=== PATIENT | female | born 1990 | race Caucasian/White ===

== ENCOUNTER 2016-10-09 09:35 | Emergency (ER) | payer OTHER ==
[~2016-10-09] VITALS: Ht 162.6 cm; Wt 94.0 kg
[~2016-10-09 09:35] MED LIST: ACET500C5 PO; FAMO-18 PO; ONDA4TAB35 PO; SODI75SP NASAL
[2016-10-09 09:51] VITALS: Ht 162.6 cm; Wt 94.0 kg
--- NOTE | 2016-10-09 11:56 | ERD ---
ER Documentation Chief Complaint Date/Time DATE: 10/09/16 TIME: 11:49 Chief Complaint cough since last friday HPI 25-year-old female with a past medical history of asthma presents to the ED complaining of cough that started 1 week ago. Reports that it is dry. States that she is currently 31 weeks . States that her cough started to get worse last night associated with body aches. States that she saw her primary care physician, Dr. Cristina yesterday and was prescribed Keflex for prophylaxis for bronchitis. States that she has been taking Tylenol PM at night. Denies any chest pain, shortness of breath, abdominal pain, vaginal bleeding, vaginal discharge, fever, chills, nausea, vomiting. Patient denies any recent traveling. No leg swelling. ROS All systems reviewed and are negative except as per history of present illness. Medications Home Meds Active Scripts Ondansetron Hcl* (Zofran* ODT) 4 mg -ODT Tab.disper, 4 MG PO Q6 Y for NAUSEA AND /OR VOMITING, #10 TAB Prov:NAHUN CABRERA I. OVERLOCKER 09/09/15 Sodium Chloride/Sod Bicarb (Nasa Mist Saline Mcdonough) 75 Ml Mcdonough, 2 SPRAYS NASAL BID, #1 BOTTLE Prov:NAHUN CABRERA I. OVERLOCKER 09/09/15 Acetaminophen* (Tylophen*) 500 Mg Capsule, 1 CAP PO Q6H Y for PAIN AND OR ELEVATED TEMP, #20 CAP Prov:MARIFER ARVIZU PA-C 02/01/15 Famotidine* (Pepcid*) 20 Mg Tablet, 20 MG PO BID, #30 TAB Prov:MARIFER ARVIZU PA-C 02/01/15 Allergies Allergies: Coded Allergies: No Known Drug Allergy (Verified Allergy, Unknown, 06/23/08) PMhx/Soc History of Surgery: No Anesthesia Reaction: No Hx Neurological Disorder: No Hx Respiratory Disorders: No (ASTHMA) Hx Cardiac Disorders: No Hx Psychiatric Problems: No Hx Miscellaneous Medical Probl: No ( 20WKS 06/21) Hx Alcohol Use: No Hx Substance Use: No Hx Tobacco Use: No Physical Exam Vitals Vital Signs Date Time Temp Pulse Resp B/P Pulse Ox O2 Delivery O2 Flow Rate FiO2 10/09/16 09:51 97.7 107 18 119/68 98 Physical Exam Const: Dah-sgh-jbwffjcci, well-nourished. In no acute distress. Head: Atraumatic, normocephalic Eyes: Normal Conjunctiva without injection. No purulent discharge. PERRL. EOMI ENT: Normal external ear. Ear canal without erythema. Tympanic membrane pearly cr without effusion or bulging. Nasal canal clear with normal turbinates. Moist oropharynx without tonsillar exudates. Non-erythematous pharynx. Uvula midline. No drooling. No trismus. Neck: Full range of motion. No meningismus. No cervical lymphadenopathy. Resp: Clear to auscultation bilaterally. No wheezing, rhonchi, rales, or crackles. No accessory muscle use. No retractions. Cardio: Regular rate and rhythm. No murmurs, rubs or gallops. Abd: Soft, non tender, non distended. Normal bowel sounds. No palpable masses. No rebound tenderness. No guarding. Skin: No petechiae or rashes Back: No midline tenderness. No CVA tenderness. Ext: No cyanosis, or edema. Neur: Awake and alert. Psych: Normal Mood and Affect Procedures/MDM 25-year-old female with a past medical history of asthma presents to the ED and is currently with a dry cough that started 1 week ago. Patient is afebrile and nontoxic-appearing. Patient is , this was discussed with the patient that there are not many safe cough medication indicated for . Patient is already taking Tylenol PM which has guaifenesin and phenylephrine which has provided slight relief. Patient is also taking Keflex for prophylaxis for bronchitis prescribed by the primary care physician. A chest x-ray is not indicated at this time since patient's lungs are clear to auscultation. No wheezing or accessory muscle use noted. Speaking in full sentences. No respiratory distress noted. No hypoxia. Patient's physical exam include lungs which were clear to auscultation and a normal pulse oximetry. There is a low suspicion for pneumonia, pneumothorax, pulmonary embolism, epiglottitis, otitis media, otitis externa, viral/strep pharyngitis, sinusitis, peritonsillar abscess, mastoiditis, retropharyngeal abscess, meningitis, sepsis, acute abdomen or other emergent conditions. Fluids, rest, and symptomatic treatment are recommended for the management of patient's symptoms. Patient was instructed to return to the ED for any new or worsening symptoms. They should otherwise follow up with the primary care provider within 1-2 days. The patient's questions were answered at the time of discharge. Patient understood and agreed with discharge management. Departure Diagnosis: Primary Impression: Cough Condition: Stable Patient Instructions: Uri, Viral, No Abx (Adult) Referrals: [facility] YOU HAVE RECEIVED A MEDICAL SCREENING EXAM AND THE RESULTS INDICATE THAT YOU DO NOT HAVE A CONDITION THAT REQUIRES URGENT TREATMENT IN THE EMERGENCY DEPARTMENT. FURTHER EVALUATION AND TREATMENT OF YOUR CONDITION CAN WAIT UNTIL YOU ARE SEEN IN YOUR DOCTORS OFFICE WITHIN THE NEXT 1-2 DAYS. IT IS YOUR RESPONSIBILITY TO MAKE AN APPOINTMENT FOR FOLOW-UP CARE. IF YOU HAVE A PRIMARY DOCTOR --you should call your primary doctor and schedule an appointment IF YOU DO NOT HAVE A PRIMARY DOCTOR YOU CAN CALL OUR PHYSICIAN REFERRAL HOTLINE AT IF YOU CAN NOT AFFORD TO SEE A PHYSICIAN YOU CAN CHOSE FROM THE FOLLOWING [facility] [address] [facility]. [facility] [address] [facility] [address] [facility] [address] [facility] [facility] [facility] [address] [facility]. [facility]. [address] [facility]. [facility] YOU HAVE RECEIVED A MEDICAL SCREENING EXAM AND THE RESULTS INDICATE THAT YOU DO NOT HAVE A CONDITION THAT REQUIRES URGENT TREATMENT IN THE EMERGENCY DEPARTMENT. FURTHER EVALUATION AND TREATMENT OF YOUR CONDITION CAN WAIT UNTIL YOU ARE SEEN IN YOUR DOCTORS OFFICE WITHIN THE NEXT 1-2 DAYS. IT IS YOUR RESPONSIBILITY TO MAKE AN APPOINTMENT FOR FOLOW-UP CARE. IF YOU HAVE A PRIMARY DOCTOR --you should call your primary doctor and schedule and appointment IF YOU DO NOT HAVE A PRIMARY DOCTOR YOU CAN CALL OUR PHYSICIAN REFERRAL HOTLINE AT . IF YOU CAN NOT AFFORD TO SEE A PHYSICIAN YOU CAN CHOSE FROM THE FOLLOWING [facility] INSTITUTIONS: [facility] [address] [place] [address] [facility] [address] [place] [address] [facility] [address] [place] [address] [facility] Additional Instructions: Continue taking the Keflex prescribed by your family doctor. FOLLOW UP WITH YOUR PRIMARY CARE PHYSICIAN in 1-2 days. Return to this facility if you are not improving as expected. BISHOP FAULKNER PA-C Oct 09, 2016 11:56
== END 2016-10-09 11:45 | disposition home or self-care (01) ==
LOC: FTE 09:35
DX: O99.513 Diseases of the respiratory system complicating pregnancy, third trimester (principal); R05 Cough; J45.909 Unspecified asthma, uncomplicated; Z3A.31 31 weeks gestation of pregnancy
CPT/HCPCS: 99282

== ENCOUNTER 2016-11-22 12:00 | Outpatient (CLI) | payer OTHER ==
[~2016-11-22] VITALS: Ht 162.6 cm; Wt 98.2 kg
[~2016-11-22 12:00] MED LIST changes: -FAMO-18 PO; +FAMO-96 PO
[2016-11-22 12:14] VITALS: Ht 162.6 cm; Wt 98.2 kg
[2016-11-22 12:16] VITALS: BP 123/88; PULSE 90; RESP 20
[2016-11-22] MEDS ORDERED: PREN-99 PO (12:23)
--- NOTE | 2016-11-22 14:32 | TRIAGE ---
OB Triage Datetime Report Generated by CPN: 11/22/2016 14:32 Datetime: 11/22/2016 12:33 Time of Arrival: 11/22/2016 11:51 EGA: 38.0 Arrived By: Ambulatory Arrived From: Home Chief Complaint: abdominal pain intermittent since 11am Movement: Present Contractions: Irregular Contractions: 2-3 Rupture of Membranes: Denies Vaginal Bleeding: None Vaginal Discharge: Denies Recent Sexual Intercouse: Denies Abdominal Trauma: Not Applicable Patient Complaints: Contractions Initial Plan: fht, ve, talk to dr, see dr Datetime: 11/22/2016 12:24 Stage of : OB Triage Assessment Type: Triage Maternal Assessment Level of Consciousness: Fully Conscious DTR's/Clonus: DTRs 2+; No Clonus Headache: Denies Blurred Vision: No Respiratory Effort: Unlabored; Regular Rhythm; Equal Expansion Breath Sounds, Left: Clear and Equal Breath Sounds, Right: Clear and Equal Nausea/Vomiting: Denies RUQ Epigastric Pain: Denies Lower Extremities Edema: None Upper Extremities Edema: None Facial Edema: None Temperature Route: Oral Fall Risk Assessment History of Falling: (0) No Secondary Diagnosis: (0) No Ambulatory Aid: (0) Bedrest/Nurse Assist IV Therapy: (0) No Gait: (0) Normal/Bedrest/Immobile Mental Status: (0) Oriented to Own Ability Fall Score: 0 Fall Risk Score Definition: No Risk: No action required Labor Evaluation Monitor Mode: External Quality: Mild Resting Tone [place]: Relaxed Contraction Comments: uc's at home were "9 but now that i'm here in the hospital they've gone away " Heart Rate FHR Baseline Rate: 135 Monitor Mode: External US FHR Baseline Changes: No Baseline Change Variability: Moderate 6-25 bpm Accelerations: 15X15 Decelerations: None Category: Category I Comments: "baby is moving" Pain Assessment Pain Scale: 6 Pain Presence: Intermittent Pain Type: Cramping; Pressure Pain Location: Abdomen; Back Pain Goal: 3 Pain Relief Measures: Comfort Measures Pain Assessment Comments: told pt about round ligament pain, last baby 8 yrs ago Vaginal Exam Dilatation (cms): 0.5 Effacement (%): 30 Station: -3 Exam By: vijay daniel rn Membrane Status: Intact Vaginal Bleeding: None Presentation 'A': Cephalic (Annotations: nst at perinatologist 2x weekly for ' Asthma and wa tching fluid" yesterday 11/21/16 nst done at [facility])
--- NOTE | 2017-01-23 18:30 | PN ---
Triage Information Date/Time 11/22/16 Weeks of Gestation 38 : 2 Para: 0 Assessment/Plan CONTRACTIONS PATRICE SEXTON MD Jan 23, 2017 18:30
== END 2016-11-22 13:38 | disposition home or self-care (01) ==
LOC: OBT 12:00 → L-D 12:00 → OBT 13:38
PROVIDERS: ATTEND Obstetrics & Gynecology
DX: O62.9 Abnormality of forces of labor, unspecified (principal); Z3A.38 38 weeks gestation of pregnancy
CPT/HCPCS: G0463

== ENCOUNTER 2016-12-03 17:43 | Inpatient (IN) | payer OTHER ==
--- NOTE | 2016-11-27 16:23 | QN ---
Documentation Comment 25 years old 2 para 38 week and to triage rule out labor , pelvic examination cervix closed not effaced vertex at -2 station patient had biophysical profile results 02/11 discharged home with follow-up instruction at [facility] PATRICE SEXTON MD November 27, 2016 16:23
[~2016-12-03] VITALS: Ht 162.6 cm; Wt 102.1 kg
[~2016-12-03 17:43] MED LIST changes: +FAMO-18 PO; -FAMO-96 PO; +PREN-99 PO
[2016-12-03 18:34] VITALS: BP 120/81; PULSE 93; Ht 162.6 cm; Wt 102.1 kg
[2016-12-03] MEDS: LACTATED RINGER'S 1,000 ML IV SCH (19:27)
[2016-12-03] MEDS ORDERED: BUTORPHANOL 2 MG INJ IV PRN (19:30)
[2016-12-03] MEDS ORDERED: OXYTOCIN 30 UNITS/LR 500 ML IV SCH ×2 (19:30)
[2016-12-03] MEDS ORDERED: CARBOPROST 250 MCG INJ IM PRN (19:30)
[2016-12-03] MEDS ORDERED: LIDOCAINE 1% (MPF) 30 ML INJ INJ PRN (19:30)
[2016-12-03] MEDS ORDERED: MISOPROSTOL 200 MCG TAB PR PRN (19:30)
[2016-12-03] MEDS ORDERED: IBUPROFEN 600 MG TAB PO PRN (19:30)
[2016-12-03] MEDS ORDERED: METHYLERGONOVINE 0.2 MG INJ IM PRN (19:30)
[2016-12-03] MEDS ORDERED: OXYTOCIN 30 UNITS/LR 500 ML IV PRN (19:30)
--- NOTE | 2016-12-03 19:41 | TRIAGE ---
OB Triage Datetime Report Generated by CPN: 12/03/2016 19:40 Datetime: 12/03/2016 19:07 Stage of : OB Triage Datetime: 12/03/2016 18:19 Stage of : OB Triage Assessment Type: Triage Maternal Assessment Level of Consciousness: Fully Conscious DTR's/Clonus: DTRs 2+; No Clonus Headache: Denies Blurred Vision: No Respiratory Effort: Unlabored; Regular Rhythm; Equal Expansion Breath Sounds, Left: Clear and Equal Breath Sounds, Right: Clear and Equal Nausea/Vomiting: Denies RUQ Epigastric Pain: Denies Facial Edema: None Temperature Route: Axillary Fall Risk Assessment History of Falling: (0) No Secondary Diagnosis: (0) No Ambulatory Aid: (0) Bedrest/Nurse Assist IV Therapy: (0) No Gait: (0) Normal/Bedrest/Immobile Mental Status: (0) Oriented to Own Ability Fall Score: 0 Fall Risk Score Definition: No Risk: No action required Labor Evaluation Frequency: Q5 Monitor Mode: External Duration (sec)2399: 40-60 Quality: Mild Pattern: Normal: <= 5 Contractions in 10 Minutes Resting Tone [place]: Relaxed Interventions: Sterile Vaginal Exam Heart Rate FHR Baseline Rate: 135 Monitor Mode: External US Variability: Moderate 6-25 bpm Accelerations: 10X10 Decelerations: None Category: Category I Pain Assessment Pain Scale: 6 Pain Presence: Intermittent Pain Type: Cramping; Contraction Pain Location: Abdomen Pain Goal: 3 Pain Relief Measures: Comfort Measures Vaginal Exam Dilatation (cms): 1.5 Effacement (%): 70 Station: -2 Exam By: S MINA Membrane Status: Intact Datetime: 12/03/2016 18:13 Time of Arrival: 12/03/2016 17:40 EGA: 39.4 Arrived By: Ambulatory Arrived From: Home Chief Complaint: C/O UC/S SINCE 2PM, DENIES LEAKING OR BLEEDING Movement: Present Contractions: Regular Rupture of Membranes: Denies Vaginal Bleeding: None Vaginal Discharge: Denies Recent Sexual Intercouse: Denies Abdominal Trauma: Not Applicable Time Provider Notified: 12/03/2016 18:15 Provider Notified: CARLIE Initial Plan: MONITOR, VE Datetime: 11/28/2016 09:18 Comments: Loss of contact with ultrasound, RN at bedside, ultrasound adjusted. FHT audible a t 135. Datetime: 11/22/2016 12:33 EGA: 38.0 Datetime: 11/22/2016 12:24 Fall Score: 0 Fall Risk Score Definition: No Risk: No action required
[2016-12-03 19:45] LABS: ADD SCAN DIFF NO; BASOPHILS % 0.2 % (0.0-2.0); EOSINOPHILS # 0.1 10^3/ul (0.0-0.5); EOSINOPHILS % 0.9 % (0.0-7.0); HEMATOCRIT 39.6 % (37.0-47.0); HEMOGLOBIN 13.8 g/dl (12.0-16.0); LYMPHOCYTES # 2.4 10^3/ul (0.8-2.9); LYMPHOCYTES % 20.1 % (15.0-51.0); MEAN CORPUSCULAR HEMOGLOBIN 29.4 pg (29.0-33.0); MEAN CORPUSCULAR HGB CONC 34.8 g/dl (32.0-37.0); MEAN CORPUSCULAR VOLUME 84.4 fl (82.0-101.0); MEAN PLATELET VOLUME 11.1 fl (7.4-10.4); MONOCYTE # 0.7 10^3/ul (0.3-0.9); MONOCYTES % 5.6 % (0.0-11.0); NEUTROPHIL # 8.7 10^3/ul (1.6-7.5); NEUTROPHILS % 72.9 % (39.0-77.0); PLATELET COUNT 278 10^3/UL (140-415); RED BLOOD COUNT 4.69 10^6/ul (4.20-5.40); RED CELL DISTRIBUTION WIDTH 14.5 % (11.5-14.5); WHITE BLOOD COUNT 11.9 10^3/ul (4.8-10.8)
[2016-12-03] MEDS ORDERED: LACTATED RINGER'S 1,000 ML IV PRN (20:00)
[2016-12-03 20:03] LABS: INR 0.88; PROTIME 11.9 Sec (12.2-14.2); PT RATIO 0.9
[2016-12-03 20:04] LABS: PARTIAL THROMBOPLASTIN TIME 29.2 Sec (25.0-35.0)
[2016-12-03] MEDS ORDERED: LACTATED RINGER'S 1,000 ML IV ONE (21:19)
[2016-12-03] MEDS ORDERED: FENTAnyl 2MCG/ML-ROPIV 0.2% 100 ML ONE (21:25)
[2016-12-03] MEDS ORDERED: NALOXONE (0.4 MG/ML) INJ IV PRN (21:30)
[2016-12-03] MEDS ORDERED: CITRIC ACID/SODIUM CITRATE 15 ML CUP PO ONE (21:30)
[2016-12-03] MEDS ORDERED: morphine 2 MG INJ IV PRN ×2 (21:30)
[2016-12-03] MEDS ORDERED: KETOROLAC 30 MG INJ IV PRN (21:30)
[2016-12-03] MEDS ORDERED: FENTAnyl 2MCG/ML-ROPIV 0.2% 100 ML BAG EPI SCH (21:30)
[2016-12-03] MEDS ORDERED: PROCHLORPERAZINE 10 MG INJ IV PRN (21:30)
[2016-12-03] MEDS ORDERED: DIPHENHYDRAMINE 50 MG INJ IV PRN (21:30)
[2016-12-03] MEDS ORDERED: ONDANSETRON 4 MG INJ IV PRN (21:30)
[2016-12-03] MEDS ORDERED: ONDANSETRON 4 MG INJ IV ONE (21:30)
[2016-12-04] MEDS: FENTAnyl 2MCG/ML-ROPIV 0.2% 100 ML BAG EPI SCH ×2 (04:50→10:59)
[2016-12-04] MEDS: LACTATED RINGER'S 1,000 ML IV SCH ×2 (09:14→14:33)
--- NOTE | 2016-12-04 09:25 | HP ---
Date/Time of Note Date/Time of Note DATE: 12/04/16 TIME: 09:09 OB - History Hx of Present Free Text/Dictation 25 years old 2 para 1 EDC December 06, 2016 admitted to [facility] 39 weeks and 5 days in labor pelvic examination on admission cervical dilatation 6 cm 90% effacement vertex at -2 station contraction every 3-5 minutes category 1 heart tracing ,expectant management for vaginal delivery This patient has been under the care of the [facility] her was not complicated with gestational diabetes -induced hypertension or any other surgical or medical condition 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 Medical history asthma patient using inhaler albuterol periodically the last inhaler use December 02, 2016. Chief Complaint: Labor contraction Estimated Due Date: Dec 06, 2016 : 2 Para: 1 Care: Good Care Ultrasounds: Normal mid trimester US Obstetrical Complications: None Medical Complications: Respiratory Past Family/Social History * Past Medical, Surgical, Family and Obstetric Histories reviewed from chart. Rubella: immune RPR/VDRL: Negative GBS Status: Negative HBsAG: Negative OB Admission Exam Vital Signs Vital Signs Vital Signs Date Time Temp Pulse Resp B/P Pulse Ox O2 Delivery O2 Flow Rate FiO2 12/03/16 18:34 97.7 93 120/81 Physical Exam Heart: Rhythm Normal Lungs: Clear, Equal Abdomen: WNL Extremities: Normal Reflexes: Normal Cervical Dilatation: 6cm Effacement: Other (90%) Station: -1 Membranes: Ruptured Amniotic Fluid: Thin Meconium Heart Rate: 130's Accelerations: Accelerations Present Decelerations: No Decelerations Varibility: Moderate Contractions on Admission: < 5 Minutes Apart Intensity: Moderate Last 72 hours Lab Results CBC & BMP 12/03/16 19:30 OB Assessment/Plan Reason for admission: other (Term in active labor expecting management for vaginal delivery) PATRICE SEXTON MD December 04, 2016 09:23
[2016-12-04] MEDS: CEPASTAT LOZENGE MT PRN ×2 (10:00→13:41)
[2016-12-04] MEDS ORDERED: OXYTOCIN 30 UNITS/LR 500 ML IV SCH (11:00)
[2016-12-04 20:30] VITALS: BP 135/90; PULSE 64; RESP 18
[2016-12-04] MEDS ORDERED: METHYLERGONOVINE 0.2 MG INJ IM PRN (21:30)
[2016-12-04] MEDS ORDERED: CARBOPROST 250 MCG INJ IM PRN (21:30)
[2016-12-04] MEDS ORDERED: OXYTOCIN 30 UNITS/LR 500 ML IV PRN (21:30)
[2016-12-04] MEDS ORDERED: WITCH HAZEL/GLYCERIN PAD PR PRN (21:30)
[2016-12-04] MEDS ORDERED: ACETAMINOPHEN/CODEINE #3 TAB PO PRN ×2 (21:30)
[2016-12-04] MEDS ORDERED: LANOLIN 7 GM TUBE TOP PRN (21:30)
[2016-12-04] MEDS ORDERED: OXYCODONE/ASPIRIN (4.88/325) TAB PO PRN ×2 (21:30)
[2016-12-04] MEDS ORDERED: BENZOCAINE 20% 56 ML SPRAY TOP PRN (21:30)
[2016-12-04] MEDS ORDERED: MISOPROSTOL 200 MCG TAB PR PRN (21:30)
[2016-12-04] MEDS ORDERED: ONDANSETRON 4 MG INJ IV PRN (21:30)
[2016-12-04] MEDS ORDERED: DIBUCAINE 1% 30 GM OINT PR PRN (21:30)
[2016-12-04] MEDS: LACTATED RINGER'S 1,000 ML IV* SCH (22:31)
--- NOTE | 2016-12-04 23:08 | NSTRPT ---
NST Information Datetime Report Generated by CPN: 12/04/2016 23:08 Datetime: 12/03/2016 08:20 NST Information EGA: 39.4 Test Number: 16 Time on Monitor: 12/03/2016 08:42 Time off Monitor: 12/03/2016 09:12 NST Duration (Min): 30 Reason for NST: Other Reason for NST Other: Asthma Test and Monitor Explained: Monitor Explained; Test Explained; Verbalized Understanding Pulse: 76 Resp: 16 SBP: 124 DBP: 75 Test Evaluation NST Interventions: Reposition Patient Patient States Movement: Present Contraction Frequency: q4-7min, denies FHR Baseline : 115 Variability: Moderate 6-25bpm Accelerations: 15X15 Decelerations: None FHR Category: Category I NST Results: Reactive Comments: To u/s, MANUELA 15.8cm, cephalic 0914-Home undelivered with labor precautions, kick count instructions reviewed, and follow up NST appt given. States understanding and denies further questions at this time. Electronically Signed By E-Signature: with User ID: [id number] Datetime: 11/28/2016 08:37 NST Information EGA: 38.6 NST Duration (Min): 31 Datetime: 11/25/2016 08:08 NST Information EGA: 38.3 NST Duration (Min): 23 Datetime: 11/21/2016 08:13 NST Information EGA: 37.6 NST Duration (Min): 30 Datetime: 11/18/2016 08:20 NST Information EGA: 37.3 NST Duration (Min): 31 Datetime: 11/14/2016 08:28 NST Information EGA: 36.6 NST Duration (Min): 20 Datetime: 11/11/2016 08:23 NST Information EGA: 36.3 NST Duration (Min): 23 Datetime: 11/07/2016 08:26 NST Information EGA: 35.6 NST Duration (Min): 30 Datetime: 11/04/2016 08:48 NST Information EGA: 35.3 NST Duration (Min): 30 Datetime: 10/31/2016 08:18 NST Information EGA: 34.6 NST Duration (Min): 29 Datetime: 10/28/2016 08:36 NST Information EGA: 34.3 NST Duration (Min): 38 Datetime: 10/24/2016 08:13 NST Information EGA: 33.6 NST Duration (Min): 24 Datetime: 10/21/2016 08:22 NST Information EGA: 33.3 NST Duration (Min): 42 Datetime: 10/17/2016 08:06 NST Information EGA: 32.6 NST Duration (Min): 23 Datetime: 10/14/2016 09:30 NST Information EGA: 32.3 NST Duration (Min): 41 Datetime: 10/10/2016 08:56 NST Information EGA: 31.6 Datetime: 10/10/2016 08:26 NST Duration (Min): 25
[2016-12-04] MEDS: IBUPROFEN 600 MG TAB PO SCH (23:32)
[2016-12-05] VITALS: BP 119/70; PULSE 78; RESP 18
[2016-12-05 04:00] VITALS: BP 110/80; PULSE 71; RESP 20
[2016-12-05] MEDS: LACTATED RINGER'S 1,000 ML IV* SCH ×2 (05:46→13:24)
[2016-12-05] MEDS: IBUPROFEN 600 MG TAB PO SCH ×3 (05:46→18:00)
[2016-12-05 08:00] VITALS: BP 118/74; PULSE 80; RESP 18
[2016-12-05 08:21] LABS: ADD SCAN DIFF NO
[2016-12-05 08:28] LABS: BASOPHILS % 0.3 % (0.0-2.0); EOSINOPHILS # 0.1 10^3/ul (0.0-0.5); HEMATOCRIT 37.2 % (37.0-47.0); HEMOGLOBIN 12.7 g/dl (12.0-16.0); LYMPHOCYTES % 14.9 % (15.0-51.0); MEAN CORPUSCULAR HEMOGLOBIN 29.4 pg (29.0-33.0); MEAN CORPUSCULAR HGB CONC 34.1 g/dl (32.0-37.0); MEAN CORPUSCULAR VOLUME 86.1 fl (82.0-101.0); MEAN PLATELET VOLUME 11.3 fl (7.4-10.4); MONOCYTE # 0.5 10^3/ul (0.3-0.9); MONOCYTES % 3.7 % (0.0-11.0); NEUTROPHIL # 10.9 10^3/ul (1.6-7.5); NEUTROPHILS % 79.7 % (39.0-77.0); PLATELET COUNT 251 10^3/UL (140-415); RED BLOOD COUNT 4.32 10^6/ul (4.20-5.40); RED CELL DISTRIBUTION WIDTH 14.1 % (11.5-14.5); WHITE BLOOD COUNT 13.7 10^3/ul (4.8-10.8)
[2016-12-05] MEDS: SENNA/DOCUSATE NA (8.6MG/50MG) TAB PO SCH ×2 (08:36→21:22)
[2016-12-05 17:03] VITALS: BP 112/68; PULSE 65; RESP 18
--- NOTE | 2016-12-05 17:34 | LDN ---
Date/Time of Note Date/Time of Note DATE: 12/05/16 TIME: 17:26 Delivery Summary Normal spontaneous vaginal delivery of a baby girl 4205 g from OA position shoulders delivered without any difficulty the rest of the baby's body follow cord was clamped after stopped pulsation placenta spontaneous expulsion inspected complete baby had nuchal cord 1 patient sustained various perineal laceration repaired with 3-0 chromic catgut estimated blood loss 250 cc Weeks of Gestation December 06, 2016 Placenta Delivered: Spontaneously Meconium: Light Episiotomy: No Perineal laceration: 1 Laceration repair: First-degree small perineal laceration repaired with 3-0 chromic catgut Anesthesia type: Epidural Estimated blood loss: 250 Sponge & Needle done & correct: Yes All needle counts correct: Yes Any foreign bodies felt in the: No Problems: Infant Delivery Information Sex Infant Sex: female Apgars 1 Minute: 7 5 Minute: 8 10 Minute: 9 Suctioning Nose & mouth suctioned at [facility]: Yes Delee suction performed: Yes Umbilical Cord Umbilical cord with: 3 Vessels Cord presentations: nuchal cord Cord Blood was obtained: Yes PATRICE SEXTON MD Dec 05, 2016 17:34
--- NOTE | 2016-12-05 17:35 | PN ---
Date/Time of Note Date/Time of Note DATE: 12/05/16 TIME: 17:34 OB Subjective Subjective Subjective day 1, afebrile vital signs stable abdomen soft uterus well contracted lochia moderate extremity normal ambulation encouraged Laboratory Tests Test 12/05/16 08:02 White Blood Count 13.710^3/ul Red Blood Count 4.3210^6/ul Hemoglobin 12.7g/dl Hematocrit 37.2% Mean Corpuscular Volume 86.1fl Mean Corpuscular Hemoglobin 29.4pg Mean Corpuscular Hemoglobin Concent 34.1g/dl Red Cell Distribution Width 14.1% Platelet Count 47119^3/UL Mean Platelet Volume 11.3fl Neutrophils % 79.7% Lymphocytes % 14.9% Monocytes % 3.7% Eosinophils % 1.0% Basophils % 0.3% Nucleated Red Blood Cells % 0.0/100WBC Neutrophils # 10.910^3/ul Lymphocytes # 2.010^3/ul Monocytes # 0.510^3/ul Eosinophils # 0.110^3/ul Basophils # 0.010^3/ul Nucleated Red Blood Cells # 0.010^3/ul Current Medications Medications (Trade) Dose Ordered Sig/Jacki Route PRN Reason Start Time Stop Time Status Last Admin Dose Admin Lactated Ringer's (Lr) 1,000 ml @ 125 mls/hr Q8H IV 12/03/16 19:13 12/04/16 21:29 DC 12/04/16 14:33 Butorphanol Tartrate (Stadol) 2 mg Q2H PRN IV PAIN 12/03/16 19:30 12/04/16 21:29 DC Lidocaine 30 ml 30 ml ONCE PRN INJ EPISIOTOMY/TEARING 12/03/16 19:30 12/04/16 21:29 DC Oxytocin/Lactated Ringer's 500 ml @ 125 mls/hr ONCE -MAY REPEAT X1 IV 12/03/16 19:30 12/04/16 21:29 DC 12/04/16 18:38 Oxytocin/Lactated Ringer's 500 ml @ 125 mls/hr ONCE IV 12/03/16 19:30 12/04/16 21:30 DC Ibuprofen 600 mg 600 mg ONCE PRN PO Mild Pain (Pain Score 1-3) 12/03/16 19:30 12/04/16 21:30 DC 12/04/16 18:15 Lactated Ringer's 1,000 ml @ 2,000 mls/hr Q30M PRN IV PRE-EPIDURAL BOLUS 12/03/16 20:00 12/04/16 21:30 DC 12/03/16 21:47 Oxytocin/Lactated Ringer's 500 ml @ 0 mls/hr ONCE PRN IV For Hemorrhage Management 12/03/16 19:30 12/04/16 21:30 DC 12/04/16 10:58 Methylergonovine Maleate (Methergine) 0.2 mg ONCE PRN IM VAGINAL BLEEDING 12/03/16 19:30 12/04/16 21:30 DC Carboprost Tromethamine (Hemabate) 250 mcg ONCE PRN IM VAGINAL BLEEDING 12/03/16 19:30 12/04/16 21:30 DC Misoprostol (Cytotec) 1,000 mcg ONCE PRN LA VAGINAL BLEEDING 12/03/16 19:30 12/04/16 21:30 DC Naloxone HCl (Narcan) 0.1 mg Q2M PRN IV FOR RESP RATE 8 OR LESS 12/03/16 21:30 12/04/16 21:30 DC Ketorolac Tromethamine (Toradol) 30 mg Q6H PRN IV PAIN 12/03/16 21:30 12/04/16 21:32 DC Morphine Sulfate (morphine) 2 mg Q3H PRN IV PAIN LEVEL 1-5 12/03/16 21:30 12/04/16 21:32 DC Morphine Sulfate (morphine) 4 mg Q3H PRN IV PAIN LEVEL 6-10 12/03/16 21:30 12/04/16 21:32 DC Diphenhydramine HCl (Benadryl) 25 mg Q6H PRN IV ITCHING 12/03/16 21:30 12/04/16 21:32 DC Ondansetron HCl (Zofran Inj) 4 mg Q6H PRN IV NAUSEA AND/OR VOMITING 12/03/16 21:30 12/04/16 21:32 DC Prochlorperazine (Compazine Inj) 10 mg ONCE PRN IV NAUSEA AND/OR VOMITING 12/03/16 21:30 12/04/16 21:32 DC Fentanyl/ Ropivacaine 100 ml 100 ml EPIDURAL INFUSION EPI 12/03/16 21:30 12/03/16 23:32 DC Lactated Ringer's (Lr) 1,000 ml @ 1,000 mls/hr Q1H ONCE IV 12/03/16 21:19 12/03/16 22:18 DC 12/04/16 02:09 Ondansetron HCl (Zofran Inj) 4 mg pre-procedure ONCE IV 12/03/16 21:30 12/03/16 21:31 DC Citric Acid/ Sodium Citrate 30 ml 30 ml PRE-PROCEDURE ONCE PO 12/03/16 21:30 12/03/16 21:31 DC Fentanyl/ Ropivacaine 100 ml @ STK-MED ONCE .ROUTE 12/03/16 21:25 12/03/16 21:26 DC Fentanyl/ Ropivacaine 100 ml EPIDURAL INFUSION EPI 12/03/16 21:30 12/04/16 21:30 DC 12/04/16 10:59 Phenol 1 lozenge 1 lozenge Q1H PRN MT COUGH 12/04/16 09:00 12/04/16 21:30 DC 12/04/16 13:41 Oxytocin/Lactated Ringer's 500 ml @ 0 mls/hr Q0M IV 12/04/16 11:00 12/04/16 21:30 DC Lactated Ringer's (Lr) 1,000 ml @ 125 mls/hr Q8H IV* 12/04/16 21:24 12/05/16 13:41 DC 12/05/16 05:46 Ibuprofen (Motrin) 600 mg Q6 PO 12/05/16 00:00 12/05/16 11:46 Acetaminophen/ Codeine Phosphate (Tylenol No.3) 1 tab Q4H PRN PO PAIN LEVEL 1-5 12/04/16 21:30 Acetaminophen/ Codeine Phosphate (Tylenol No.3) 2 tab Q4H PRN PO PAIN LEVEL 6-10 12/04/16 21:30 Oxycodone/Aspirin (Percodan) 1 tab Q3H PRN PO PAIN LEVEL 1-5 12/04/16 21:30 Oxycodone/Aspirin (Percodan) 2 tab Q3H PRN PO PAIN LEVEL 6-10 12/04/16 21:30 Ondansetron HCl (Zofran Inj) 4 mg Q6H PRN IV NAUSEA AND/OR VOMITING 12/04/16 21:30 Senna/Docusate Sodium (Senokot-S) 1 tab BID PO 12/05/16 09:00 12/05/16 08:36 Witch Mikayla/ Glycerin (Tucks Pads) 1 pad BEDSIDE MEDICATION PRN LA HEMORRHOID/EPISIOTMY PAIN 12/04/16 21:30 12/04/16 21:46 Benzocaine (Dermoplast [place]) 1 spray BEDSIDE MEDICATION PRN TOP HEMORRHOID/EPISIOTMY PAIN 12/04/16 21:30 12/04/16 21:46 Dibucaine (Nupercainal) 1 applic BEDSIDE MEDICATION PRN LA HEMORRHOID/EPISIOTMY PAIN 12/04/16 21:30 Lanolin (Hud-J-Rpmjby) 1 applic BEDSIDE MEDICATION PRN TOP BEDSIDE FOR KATHY TO NIPPLES 12/04/16 21:30 Measles/Mumps/ Rubella Vaccine Live (Mmr Ii Vaccine) 0.5 ml ONCE ONCE SC* 12/06/16 09:00 12/06/16 09:01 Diphtheria/ Tetanus/Acell Pertussis 0.5 ml 0.5 ml ONCE ONCE IM* 12/06/16 09:00 12/06/16 09:01 Oxytocin/Lactated Ringer's 500 ml @ 0 mls/hr ONCE PRN IV For Hemorrhage Management 12/04/16 21:30 Methylergonovine Maleate (Methergine) 0.2 mg ONCE PRN IM VAGINAL BLEEDING 12/04/16 21:30 Carboprost Tromethamine (Hemabate) 250 mcg ONCE PRN IM VAGINAL BLEEDING 12/04/16 21:30 Misoprostol (Cytotec) 1,000 mcg ONCE PRN LA VAGINAL BLEEDING 12/04/16 21:30 PATRICE SEXTON MD Dec 05, 2016 17:35
[2016-12-05 19:40] VITALS: BP 137/85; PULSE 72; RESP 18
[2016-12-06 04:05] VITALS: BP 125/90; RESP 20
[2016-12-06] MEDS: IBUPROFEN 600 MG TAB PO SCH ×3 (05:34→12:11)
[2016-12-06 08:30] VITALS: BP 131/72; PULSE 60; RESP 18
[2016-12-06] MEDS: SENNA/DOCUSATE NA (8.6MG/50MG) TAB PO SCH (09:00)
[2016-12-06] MEDS ORDERED: MEASLES,MUMPS,RUBELLA VACCINE INJ SC* ONE (09:00)
[2016-12-06] MEDS ORDERED: DIPHTH/TET/ACEL PERTUSS (ADULT) 0.5 ML VIAL IM* ONE (09:00)
--- NOTE | 2016-12-06 09:24 | PD.PPDC ---
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
--- NOTE | 2016-12-06 09:30 | DS ---
Date/Time of Note Date/Time of Note DATE: 12/06/16 TIME: 09:26 Discharge Summary Admission/Discharge Info Admit Date/Time December 03, 2016 at 19:05 Discharge Date/Time December 06, 2016 at 0925 Final Diagnosis Day 2 post normal vaginal delivery Procedures Normal vaginal delivery Hx of Present Illness Term admitted to [facility] labor and delivery. Hospital Course Uneventful satisfactory Home Meds Active Scripts Ondansetron Hcl* (Zofran* ODT) 4 mg -ODT Tab.disper, 4 MG PO Q6 Y for NAUSEA AND /OR VOMITING, #10 TAB Prov:NAHUN CABRERA I. REEL BLADE BENDER [employer]NACE TENDER 09/09/15 Sodium Chloride/Sod Bicarb (Nasa Mist Saline [place]) 75 Ml [place], 2 SPRAYS NASAL BID, #1 BOTTLE Prov:NAHUN CABRERA I. REEL BLADE B[employer]NA[employer] T[employer]ER 09/09/15 Acetaminophen* (Tylophen*) 500 Mg Capsule, 1 CAP PO Q6H Y for PAIN AND OR ELEVATED TEMP, #20 CAP Prov:MARIFER ARVIZU PA-C 02/01/15 Famotidine* (Pepcid*) 20 Mg Tablet, 20 MG PO BID, #30 TAB Prov:MARIFER ARVIZU PA-C 02/01/15 Reported Medications Vit #76/Iron,Carb/FA (Pnv 29-1 Tablet) 1 Each Tablet, 1 EACH PO, TAB 11/22/16 Follow-up Plan Appointment clinic in 2 weeks for follow-up Primary Care Provider [facility] Time spent on discharge: < 30 minutes PATRICE SEXTON MD Dec 06, 2016 09:30
== END 2016-12-06 13:30 | disposition home or self-care (01) | DRG 775 ==
LOC: L-D 17:43 → OBT 17:43 → L-D 19:05 → OBT 19:05 → L-D 21:13 → PP1 12-04 20:18
PROVIDERS: ADMIT Obstetrics & Gynecology; ATTEND Obstetrics & Gynecology
PROC: 10E0XZZ Delivery of Products of Conception, External Approach (ICD-10-PCS; principal; 2016-12-05)
PROC: 0HQ9XZZ Repair Perineum Skin, External Approach (ICD-10-PCS; 2016-12-05)
DX: O99.214 Obesity complicating childbirth (principal); E66.01 Morbid (severe) obesity due to excess calories; Z68.38 Body mass index [BMI] 38.0-38.9, adult; O70.0 First degree perineal laceration during delivery; O69.81X0 Labor and delivery complicated by cord around neck, without compression, not applicable or unspecified; Z3A.39 39 weeks gestation of pregnancy; Z37.0 Single live birth
CPT/HCPCS: 62319; 85025; 85610; 85730; 86592; 86900; 86901; 87340; 88307; 90715; 99464; G0463; J2590; J3010; J7120

== ENCOUNTER 2017-12-31 12:59 | Emergency (ER) | END 2017-12-31 15:50 | disposition home or self-care (01) ==